=== PATIENT | male | born 1975 | race Caucasian/White ===

== ENCOUNTER → 2017-03-11 | Outpatient (CLI) | payer SELFPAY ==
--- NOTE | 2017-03-11 09:53 | CT ---
EXAMINATION TYPE: CT heart w calcium score DATE OF EXAM: 03/11/2017 9:31 AM COMPARISON: NONE HISTORY: Screening for cardiovascular disorder. 213.9 CT DLP: 47.1 mGycm Automated exposure control for dose reduction was used. CT CALCIUM SCORING Coronary calcium is a marker for plaque (fatty deposits) in a blood vessel or atherosclerosis (harden ing of the arteries). The presence and amount of calcium detected in a coronary artery by the CT sca n, indicates the presence and amount of atherosclerotic plaque. These calcium deposits appear years before the development of heart disease symptoms such as chest pain and shortness of breath. A calcium score is computed for each of the coronary arteries based upon the volume and density of th e calcium deposits. This can be referred to as your calcified plaque burden. It does not correspond directly to the percentage of narrowing in the artery but does correlate with the severity of the un derlying coronary atherosclerosis. PROCEDURE TECHNIQUE - Prospective Gating was used. Slice thickness: 3mm. Density threshold (HU): 130, Pixel threshold: 3, Algorithm: discrete. RESULTS Region: LM Calcium Score ([place]at[place]): 0 Volume (mm3): 0 Mass (g): 0 Region: RCA Calcium Score ([place]): 0 Volume (mm3): 0 Mass (g): 0 Region: LAD Calcium Score ([place]): 0 Volume (mm3): 0 Mass (g): 0 Region: CX Calcium Score ([place]): 0 Volume (mm3): 0 Mass (g): 0 Region: PDA Calcium Score ([place]): NA Volume (mm3): NA Mass (g): NA Region: Other1 Calcium Score ([place]): NA Volume (mm3): NA Mass (g): NA Region: Other2 Calcium Score ([place]): NA Volume (mm3): NA Mass (g): NA Region: Other 3 Calcium Score ([place]): NA Volume (mm3): NA Mass (g): NA Total: Calcium Score ([place]): 0 Volume (mm3): 0 Mass (g): 0 TOTAL CALCIUM SCORE: 0 OTHER: Calcified hilar lymph nodes suggesting remote granulomatous disease. Granuloma within the spl een. IMPRESSION: Calcium Score: 0 Implication: No identifiable plaque. Risk of Coronary Artery Disease: Very low generally less than 5%
== END | disposition home or self-care (01) ==
LOC: RADCTMAIN 09:04
PROVIDERS: ATTEND Radiology Diagnostic Radiology
DX: Z53.9 Procedure and treatment not carried out, unspecified reason (principal)

== ENCOUNTER → 2021-06-18 | Outpatient (CLI) | payer OTHER ==
--- NOTE | 2021-06-18 12:50 | CT ---
EXAMINATION TYPE: CT brain wo con DATE OF EXAM: 06/18/2021 COMPARISON: 05/12/2013 HISTORY: headache, nausea, vomiting post head injury CT DLP: 1017.9 mGycm. Automated Exposure Control for Dose Reduction was Utilized. TECHNIQUE: CT scan of the head is performed without contrast. FINDINGS: There is no acute intracranial hemorrhage, mass effect, or midline shift identified. The ventricles and sulci are within normal limits in size. The globes are intact and the visualized sin uses are clear. IMPRESSION: No acute intracranial hemorrhage, mass effect, or midline shift is seen. If symptoms per sist consider MRI.
== END | disposition home or self-care (01) ==
LOC: RADCTMAIN 11:49
PROVIDERS: ATTEND Family Medicine
DX: S09.90XA Unspecified injury of head, initial encounter (principal); R51.9 Headache, unspecified
CPT/HCPCS: 70450

== ENCOUNTER → 2023-03-11 | Outpatient (CLI) | payer OTHER ==
[2023-03-12 01:14] LABS: HCT 44.9 % (39.6-50.0); HGB 14.7 g/dL (13.0-17.0); MCH 29.6 pg (27.0-32.0); MCHC 32.7 g/dL (32.0-37.0); MCV 90.5 fL (80.0-97.0); Mean Platelet Volume 10.5 fL (9.5-12.2); NRBC Per 100 WBC 0 /100 WBCS (0.0-0.0); Platelet Count 308 X 10*3/uL (140-440); RBC 4.96 X 10*6/uL (4.40-5.60); RDW 13.2 % (11.5-14.5); WBC 4.54 X 10*3/uL (4.50-10.00)
[2023-03-12 04:13] LABS: ALT 36 U/L (10-49); AST 24 U/L (14-35); African American GFR (CKD) 105.3 (60.0-200.0); Albumin 4.5 g/dL (3.8-4.9); Albumin/Globulin Ratio 2.05 (1.60-3.17); Alkaline Phosphatase 79 U/L (41-126); BUN/Creat Ratio 13.52 Ratio (12.00-20.00); Blood Urea Nitrogen 13.4 mg/dL (9.0-27.0); Calcium 9.6 mg/dL (8.7-10.3); Carbon Dioxide 25.8 mmol/L (20.0-27.5); Chloride 104 mmol/L (96-109); Chol/HDL Ratio 5.99 Ratio; Globulin 2.2 g/dL (1.6-3.3); Glucose 75 mg/dL (70-110); LDL Cholesterol,Calculated 140.1 mg/dL (0.0-131.0); Non-African American GFR(CKD) 90.9 (60.0-200.0); Potassium 4.4 mmol/L (3.5-5.5); Sodium 142 mmol/L (135-145); Total Protein 6.8 g/dL (6.2-8.2)
== END | disposition home or self-care (01) ==
LOC: LABWHC1 15:49
PROVIDERS: ATTEND Family Medicine
DX: Z00.00 Encounter for general adult medical examination without abnormal findings (principal); E78.5 Hyperlipidemia, unspecified; E56.9 Vitamin deficiency, unspecified
CPT/HCPCS: 36415; 80053; 80061; 82306; 83036; 84153; 84439; 84443; 85027

== ENCOUNTER 2023-04-15 10:30 | Day surgery (SDC) | payer OTHER ==
[~2023-04-15 10:30] MED LIST: LACTATED RINGERS 1,000 ML IV SCH; LIDOCAINE 1% (10MG/ML) FOR IV START INTRADERMA PRN
[2023-04-15 11:43] VITALS: TEMP 97.8
[2023-04-15] MEDS ORDERED: LIDOCAINE 2% INJ 20 MG/ML (2 ML VIAL) ONE (12:34)
[2023-04-15] MEDS ORDERED: PROPOFOL 10 MG/ML 20 ML VIAL IV ONE (12:34)
--- NOTE | 2023-04-15 12:53 | P.PCN ---
Date of Procedure: 04/15/23 Procedure(s) Performed: BRIEF HISTORY: Patient is a 48-year-old pleasant white female scheduled for an elective colonoscopy as a part of screening for colon cancer. PROCEDURE PERFORMED: Colonoscopy with biopsy . PREOPERATIVE DIAGNOSIS: Screening for colon cancer. IV sedation per Anesthesia. PROCEDURE: After informed consent was obtained, the patient, was brought into the endoscopy unit. IV sedation was administered by Anesthesia under continuous monitoring. Digital rectal examination was normal. Initially the Olympus CF-160 flexible video colonoscope was then inserted in the rectum, gradually advanced into the cecum without any difficulty. Careful examination was performed as the scope was gradually being withdrawn. Ileocecal valve and the appendiceal orifice were visualized and appeared normal. Prep was fair.. Mucosa of the cecum, ascending colon appeared normal. In the transverse colon there was a 3 mm sessile polyp removed by cold biopsy. In the descending colon there was another 4 mm sessile polyp removed by cold biopsy. Rest of the, transverse colon, descending colon, sigmoid colon, and rectum appeared normal. Scattered sigmoid diverticulosis. Retroflexion was performed in the rectum and small internal hemorrhoids were seen. The patient tolerated the procedure well. IMPRESSION: 3 mm sessile transverse colon polyp status post cold biopsy 4 mm desscending colon polyp status post cold biopsy Scattered sigmoid diverticulosis Small internal hemorrhoids. RECOMMENDATIONS: Findings of this examination were discussed with the patient as well as his family. He was advised to follow with the biopsy results. If the biopsy result adenoma he can have a repeat colonoscopy in 5 years..
[2023-04-15 13:12] VITALS: BP 114/66; PULSE 73; RESP 16
== END 2023-04-15 13:45 | disposition home or self-care (01) ==
LOC: ORWHC2ENDO 10:30
PROVIDERS: ATTEND Internal Medicine Gastroenterology
DX: Z12.11 Encounter for screening for malignant neoplasm of colon (principal); D12.3 Benign neoplasm of transverse colon; K57.30 Diverticulosis of large intestine without perforation or abscess without bleeding; K64.8 Other hemorrhoids; K21.9 Gastro-esophageal reflux disease without esophagitis; G43.909 Migraine, unspecified, not intractable, without status migrainosus; Z79.899 Other long term (current) drug therapy
CPT/HCPCS: 88305; 45380; J2704; J2001

== ENCOUNTER → 2024-02-22 | Outpatient (CLI) | payer MEDICAID ==
--- NOTE | 2024-02-22 22:33 | MR ---
EXAMINATION TYPE: MR knee LT wo con DATE OF EXAM: 02/22/2024 COMPARISON: NONE HISTORY: Left knee pain and swelling x4 months, Hx Left ACL and meniscus reconstruction/repair 2012 TECHNIQUE: Multiplanar, multisequence images of the knee is performed without IV contrast. FINDINGS: MEDIAL MENISCUS: Truncated appearance to central body and posterior horn of medial meniscus with abno rmal signal in the remnant horn extending to inferior articular surface sagittal image 29. LATERAL MENISCUS: Truncated appearance to posterior horn with abnormal signal throughout the central body and prominent horn extending to inferior articular surface coronal image 21. CRUCIATE LIGAMENTS: The posterior cruciate ligament is intact and unremarkable. Anterior cruciate lig ament is not seen and presumed torn. Susceptibility artifact prior anterior cruciate ligament surgica l repair is noted COLLATERAL LIGAMENTS: The medial collateral ligament and lateral collateral ligament complex are inta ct. Increased signal and thickening of the lateral collateral ligament. EXTENSOR MECHANISM: Visualized quadriceps and patellar tendons are intact. EFFUSION: No significant suprapatellar joint effusion. POPLITEAL CYST: No popliteal/brand cyst. TRICOMPARTMENT SPACES: Moderate to severe joint space loss and spurring. CARTILAGE: Significant full-thickness cartilaginous loss lateral tibiofemoral compartment. Additional cartilaginous loss medial tibiofemoral compartment. Some contemplation patella with fissuring along posterior patellar pole sagittal image 19. BONE MARROW SIGNAL: Subchondral cystic change posterior lateral aspect of the tibial plateau. OTHER: No additional significant abnormality is appreciated. IMPRESSION: 1. Moderate to advanced tricompartment degenerative changes are present as detailed above. 2. Complete tear of the surgically repaired anterior cruciate ligament. 3. Likely postsurgical change with recurrent full-thickness tear of the medial meniscus involving the body and posterior horn. 4. Likely postsurgical change with recurrent full-thickness tear of the central body and posterior ho rn of the lateral meniscus.
== END | disposition home or self-care (01) ==
LOC: RADMRIMAIN 18:24
PROVIDERS: ATTEND Orthopaedic Surgery
DX: M17.12 Unilateral primary osteoarthritis, left knee (principal); M23.8X2 Other internal derangements of left knee; M23.612 Other spontaneous disruption of anterior cruciate ligament of left knee; M23.322 Other meniscus derangements, posterior horn of medial meniscus, left knee; M23.352 Other meniscus derangements, posterior horn of lateral meniscus, left knee; M23.362 Other meniscus derangements, other lateral meniscus, left knee; M23.332 Other meniscus derangements, other medial meniscus, left knee; Z98.890 Other specified postprocedural states

== ENCOUNTER → 2024-03-08 | Outpatient (CLI) | payer MEDICAID, OTHER ==
[2024-03-08 11:38] LABS: HCT 46.9 % (39.6-50.0); MCHC 34.1 g/dL (32.0-37.0); MCV 87.8 FL (80.0-97.0); Mean Platelet Volume 10.1 FL (9.5-12.2); NRBC Per 100 WBC 0 X 10*3/uL (0.00-0.01); Platelet Count 295 X 10*3/uL (140-440); RBC 5.34 X 10*6/uL (4.40-5.60); WBC 3.98 X 10*3/uL (4.50-10.00)
[2024-03-08 16:35] LABS: ALT 54 U/L (10-49); AST 65 U/L (14-35); Albumin 4.6 g/dL (3.8-4.9); Albumin/Globulin Ratio 1.92 Ratio (1.60-3.17); Alkaline Phosphatase 79 U/L (41-126); Blood Urea Nitrogen 16.5 mg/dL (9.0-27.0); Carbon Dioxide 25.2 mmol/L (21.6-31.8); Chloride 102 mmol/L (96-109); Chol/HDL Ratio 5.21 Ratio; Globulin 2.4 g/dL (1.6-3.3); Glucose 113 mg/dL (70-110); LDL Cholesterol,Calculated 133.2 mg/dL (0.0-131.0); Prostate Specific Antigen 0.63 ng/mL (0.000-2.500); Sodium 139 mmol/L (135-145); T4, Free (Free Thyroxine) 1.13 ng/dL (0.80-1.80); Total Bilirubin 0.5 mg/dL (0.3-1.2)
== END | disposition home or self-care (01) ==
LOC: LABWHC1 08:03
PROVIDERS: ATTEND Family Medicine
DX: Z00.00 Encounter for general adult medical examination without abnormal findings (principal); E78.5 Hyperlipidemia, unspecified; E56.9 Vitamin deficiency, unspecified; L70.0 Acne vulgaris; Z79.899 Other long term (current) drug therapy
CPT/HCPCS: 36415; 80053; 80061; 82306; 83036; 84153; 84439; 84443; 85027

== ENCOUNTER → 2024-11-04 | Outpatient (CLI) | payer MEDICAID ==
[2024-11-04 16:24] LABS: ALT 56 U/L (10-49); AST 36 U/L (14-35); Albumin 4.6 g/dL (3.8-4.9); Albumin/Globulin Ratio 1.92 Ratio (1.60-3.17); Alkaline Phosphatase 86 U/L (41-126); Calcium 9.3 mg/dL (8.7-10.3); Carbon Dioxide 26.4 mmol/L (21.6-31.8); Chloride 103 mmol/L (96-109); Chol/HDL Ratio 3.94 Ratio; Globulin 2.4 g/dL (1.6-3.3); Glucose 103 mg/dL (70-110); LDL Cholesterol,Calculated 80.2 mg/dL (0.0-131.0); Potassium 4.6 mmol/L (3.5-5.5); Sodium 140 mmol/L (135-145); Total Bilirubin 0.4 mg/dL (0.3-1.2)
== END | disposition home or self-care (01) ==
LOC: LABWHC1 10:21
PROVIDERS: ATTEND Family Medicine
DX: J45.909 Unspecified asthma, uncomplicated (principal)
CPT/HCPCS: 36415; 80053; 80061

== ENCOUNTER 2025-01-25 20:08 | Observation (INO) | payer MEDICAID ==
[2025-01-25 20:47] LABS: Basophils % (A) 0 %; Eosinophils # (A) 0.2 k/uL (0-0.7); Eosinophils % (A) 1 %; HCT 44.1 % (39.0-53.0); HGB 14.5 gm/dL (13.0-17.5); Lymphocytes # (A) 0.8 k/uL (1.0-4.8); Lymphocytes % (A) 5 %; MCH 29.6 pg (25.0-35.0); MCHC 32.8 g/dL (31.0-37.0); Mean Platelet Volume 7.7; Monocytes # (A) 0.3 k/uL (0-1.0); Monocytes % (A) 2 %; Neutrophils # (A) 13.9 k/uL (1.3-7.7); Neutrophils % (A) 90 %; Platelet Count 268 k/uL (150-450); RDW 12.9 % (11.5-15.5); WBC 15.4 k/uL (3.8-10.6)
--- NOTE | 2025-01-25 20:49 | ED ---
General Adult HPI - General Source: patient Mode of arrival: ambulatory Limitations: no limitations <Giorgio Doran - Last Filed: 01/25/25 20:55> <Kindra Gomez - Last Filed: 01/30/25 22:26> - General Chief complaint: Shortness of Breath Stated complaint: sob Time Seen by Provider: 01/25/25 20:45 - History of Present Illness Initial comments: Macro dictation was produced using [employer] dictation software. please excuse any grammatical, word or spelling errors. Chief Complaint: 49-year-old male presents to the ER for dyspnea History of Present Illness: Patient is a 49-year-old male presents the emergency department for dyspnea. Patient with history of asthma. He is one of our internal medicine physicians. States he is short of breath the last 2 days. Recently traveled. Concerned he might have PE. He was checking his pulse ox at home and found to be as low as the high 70s with exertion. Patient has some mild chest pain. Denies that is pleuritic. Patient does have some mild coughing and some chills. No obvious sick contacts. The ROS documented in this emergency department record has been reviewed and confirmed by me. Those systems with pertinent positive or negative responses have been documented in the HPI. All other systems are other negative and/or noncontributory. (Giorgio Doran) - Related Data Home Medications Medication Instructions Recorded Confirmed Escitalopram Oxalate [Lexapro] 10 mg PO DAILY 08/29/15 01/26/25 Montelukast [Singulair] 10 mg PO HS 08/29/15 01/26/25 Famotidine [Pepcid] 20 mg PO BID PRN 04/14/23 01/26/25 Glucosamine/Chondr Hughes A Sod [Osteo 2 tab PO HS 04/14/23 01/26/25 Bi-Flex Caplet] Albuterol Inhaler [Ventolin Hfa 2 puff INHALATION RT-Q6H PRN 01/26/25 01/26/25 Inhaler] Cyanocobalamin (Vitamin B-12) 1,000 mcg PO DAILY 01/26/25 01/26/25 [Vitamin B-12] Fexofenadine HCl [Ekta Allergy] 180 mg PO DAILY 01/26/25 01/26/25 Fluticasone Propionate 44 Mcg 2 puff INHALATION RT-BID 01/26/25 01/26/25 [Flovent 44 Mcg Inhaler] Multivit-Mins/Iron/Folic/Lycop 1 tab PO DAILY 01/26/25 01/26/25 [Centrum Men's Tablet] Riboflavin (Vitamin B2) [Vitamin 400 mg PO DAILY 01/26/25 01/26/25 B-2] Rizatriptan Benzoate [Rizatriptan 10 mg PO TID PRN MDD 30mg 01/26/25 01/26/25 Benzoate ODT] Rosuvastatin Calcium [Crestor] 5 mg PO HS 01/26/25 01/26/25 Previous Rx's Medication Instructions Recorded Azithromycin [Zithromax Z Pack] 1 tab PO DIRECTED #6 tab 01/26/25 methylPREDNISolone Dose Pack 4 mg PO DIRECTED #21 tab 01/26/25 [Medrol Dose Pack] Allergies Allergy/AdvReac Type Severity Reaction Status Date / Time No Known Allergies Allergy Verified 01/26/25 09:54 Review of Systems ROS Other: All systems not noted in ROS Statement are negative. <Giorgio Doran - Last Filed: 01/25/25 20:55> ROS Other: All systems not noted in ROS Statement are negative. <Kindra Gomez - Last Filed: 01/30/25 22:26> ROS Statement: Those systems with pertinent positive or pertinent negative responses have been documented in the HPI. Past Medical History Additional Past Medical History / Comment(s): SEASONAL ALLERGIES. QUESTIONABLE ASTHMA. ACNE TX. MIGRAINES. TIB/FIB FX. History of Any Multi-Drug Resistant Organisms: None Reported Past Surgical History: Orthopedic Surgery Additional Past Surgical History / Comment(s): LEFT ACL REPPAIR. Past Anesthesia/Blood Transfusion Reactions: Previous Problems w/ Anesthesia Additional Past Anesthesia/Blood Transfusion Reaction / Comment(s): POST ACL SURGERY HAD SEVERE MIGRAINE. Past Psychological History: Depression Smoking Status: Never smoker Past Alcohol Use History: Rare Past Drug Use History: None Reported - Past Family History Mother Family Medical History: No Reported History <Giorgio Doran - Last Filed: 01/25/25 20:55> General Exam Limitations: no limitations <Giorgio Doran - Last Filed: 01/25/25 20:55> - General Exam Comments Initial Comments: PHYSICAL EXAM: General Impression: Alert and oriented x3, acute distress secondary to dyspnea HEENT: Normocephalic atraumatic, extra-ocular movements intact, pupils equal and reactive to light bilaterally, mucous membranes moist. Cardiovascular: Heart regular rate and rhythm Chest: Able to complete full sentences, no retractions, no tachypnea clear to auscultation bilaterally Abdomen: abdomen soft, non-tender, non-distended, no organomegaly Musculoskeletal: Pulses present and equal in all extremities, no peripheral edema Motor: no focal deficits noted Neurological: CN II-XII grossly intact, no focal motor or sensory deficits noted Skin: Intact with no visualized rashes Psych: Normal affect and mood (Giorgio Doran) Course <Giorgio Doran - Last Filed: 01/25/25 20:55> Vital Signs 01/25/25 01/25/25 01/25/25 20:29 20:47 20:52 Temperature 98.9 F Pulse Rate 113 H 102 H Respiratory 20 20 20 Rate Blood Pressure 120/83 116/77 O2 Sat by Pulse 93 L 95 Oximetry 01/25/25 01/26/25 01/26/25 22:45 00:00 01:21 Temperature 99.3 F Pulse Rate 93 90 94 Respiratory 18 19 18 Rate Blood Pressure 111/75 111/77 O2 Sat by Pulse 97 95 Oximetry 01/26/25 01/26/25 01:29 02:03 Temperature 99.0 F Pulse Rate 88 80 Respiratory 18 19 Rate Blood Pressure 118/81 O2 Sat by Pulse 99 Oximetry - Reevaluation(s) Reevaluation #1: 01/25/25 20:47 Ambulatory pulse ox is 88% after walking approximately 80 yards. Heart rate increased to 128 (Giorgio Doran) EKG Findings - EKG Comments: EKG Findings:: My EKG interpretation: Ventricular rate 109, sinus tachycardia,. 180, QRS 112, QTc 375. No OR prolongation, no QTC prolongation, no ST or T-wave changes noted. Overall, this EKG is unremarkable <Giorgio Doran - Last Filed: 01/25/25 20:55> Medical Decision Making - Lab Data Result diagrams: 01/25/25 20:39 <Giorgio Doran - Last Filed: 01/25/25 20:55> - Lab Data Result diagrams: 01/25/25 20:39 01/25/25 20:39 <Kindra Gomez - Last Filed: 01/30/25 22:26> - Medical Decision Making Was pt. sent in by a medical professional or institution (, PA, [facility], urgent care, hospital, or prison...) When possible be specific @ -No Did you speak to anyone other than the patient for history (EMS, parent, family, police, friend...)? What history was obtained from this source @ -No Did you review nursing and triage notes (agree or disagree)? Why? @ -I reviewed and agree with nursing and triage notes Were old charts reviewed (outside hosp., previous admission, EMS record, old EKG, old radiological studies, urgent care reports/EKG's, prison records)? Report findings @ -No old charts were reviewed Differential Diagnosis (chest pain, altered mental status, abdominal pain women, abdominal pain men, vaginal bleeding, musculoskeletal, weakness, fever, dyspnea, syncope, headache, dizziness, GI bleed, back pain, seizure, CVA, palpatations, mental health)? @ -Differential Dyspnea: Coronary syndrome, arrhythmia, tamponade, asthma, COPD, pulmonary embolism, pn eumonia, pneumothorax, pulmonary effusion, anaphylaxis, diabetic ketoacidosis, flailed chest, pulmonary contusion, diaphragmatic rupture, anemia, neuromuscular, this is not meant to be an all-inclusive list. EKG interpreted by me (3pts min.). @ -See above X-rays interpreted by me (1pt min.). @ -Pending CT interpreted by me (1pt min.). @ -None done U/S interpreted by me (1pt. min.). @ -None done What testing was considered but not performed or refused? (CT, X-rays, U/S, labs)? Why? @ -None What meds were considered but not given or refused? Why? @ -None Was smoking cessation discussed for >3mins.? @ -No Were there social determinants of health that impacted care today? How? (Homelessness, low income, unemployed, alcoholism, drug addiction, transportation, low edu. Level, literacy, decrease access to med. care, [facility], rehab)? @ -No Was there de-escalation of care discussed even if they declined (Discuss DNR or withdrawal of care, Hospice)? DNR status @ -No What co-morbidities impacted this encounter? (DM, HTN, Smoking, COPD, CAD, Cancer, CVA, ARF, Chemo, Hep., AIDS, mental health diagnosis, sleep apnea, morbid obesity)? @ -Asthma Was patient admitted / discharged? Hospital course, mention meds given and route, prescriptions, significant lab abnormalities, going to OR and other pertinent info. @ -49-year-old male presents emergency department for dyspnea. He had recent travel however he has been having coughing. Patient has a history of asthma. Slight constitutional symptoms. Patient was hypoxic at home. Is one of our internal medicine doctors. Ambulatory pulse ox was 88 after walking approximately 80 yards. Concomitantly his heart rate increased to 128. He is clear lung sounds. Patient care signed out to Dr. Gomez at 9:00 PM (Giorgio Doran) X-rays interpreted by me (1pt min.). @ -Yes and demonstrates no acute process CT interpreted by me (1pt min.). @ -Yes and demonstrates no central PE. Contrast bolus is inadequate in the peripheral segments Was patient admitted / discharged? Hospital course, mention meds given and route, prescriptions, significant lab abnormalities, going to OR and other pertinent info. @ -I assumed care of the patient at 9 PM. I did discuss results of the laboratory testing and chest x-ray with the patient. He does have a negative D- dimer however due to tachycardia, hypoxia with exertion I did recommend proceeding with the CT anyways. Patient was agreeable to this. CT does not demonstrate a central PE however the contrast is limited in the periphery. Patient is now on 2 L of oxygen. I did recommend treatment for possible asthma exacerbation. Patient was agreeable. I spoke with Dr. Vasques who will admit the patient. I will trend his troponins. Patient was agreeable to the plan he was admitted in stable condition with pulm and cardiology on consult Undiagnosed new problem with uncertain prognosis? @ -Yes Drug Therapy requiring intensive monitoring for toxicity (Heparin, Nitro, Insulin, Cardizem)? @ -No Were any procedures done? @ -No Diagnosis/symptom? @ -Acute exertional dyspnea, tachycardia, hypoxia with exertion, possible asthma exacerbation Acute, or Chronic, or Acute on Chronic? @ -Acute Uncomplicated (without systemic symptoms) or Complicated (systemic symptoms)? @ -Complicated Side effects of treatment? @ -No Exacerbation, Progression, or Severe Exacerbation? @ -No Poses a threat to life or bodily function? How? (Chest pain, [place], [place], pneumonia, PE, COPD, DKA, ARF, appy, cholecystitis, CVA, Diverticulitis, Homicidal, Suicidal, threat to staff... and all critical care pts) @ -Yes this patient does have hypoxia with exertion requiring oxygen supplementation (Kindra Gomez) - Lab Data Lab Results 01/25/25 01/25/25 01/25/25 Range/Units 20:38 20:39 20:39 WBC 15.4 H (3.8-10.6) k/uL RBC 4.90 (4.30-5.90) m/uL Hgb 14.5 (13.0-17.5) gm/dL Hct 44.1 (39.0-53.0) % MCV 90.0 (80.0-100.0) fL MCH 29.6 (25.0-35.0) pg MCHC 32.8 (31.0-37.0) g/dL RDW 12.9 (11.5-15.5) % Plt Count 268 (150-450) k/uL MPV 7.7 Neutrophils % 90 % Lymphocytes % 5 % Monocytes % 2 % Eosinophils % 1 % Basophils % 0 % Neutrophils # 13.9 H (1.3-7.7) k/uL Lymphocytes # 0.8 L (1.0-4.8) k/uL Monocytes # 0.3 (0-1.0) k/uL Eosinophils # 0.2 (0-0.7) k/uL Basophils # 0.0 (0-0.2) k/uL PT 11.2 (10.0-12.5) sec INR 1.0 (<1.2) APTT 23.7 (22.0-30.0) sec D-Dimer 0.30 (<0.60) mg/L FEU Sodium (137-145) mmol/L Potassium (3.5-5.1) mmol/L Chloride (98-107) mmol/L Carbon Dioxide (22-30) mmol/L Anion Gap mmol/L BUN (9-20) mg/dL Creatinine (0.66-1.25) mg/dL Est GFR (CKD-EPI)AfAm (>60 ml/min/1.73 sqM) Est GFR (CKD-EPI)NonAf (>60 ml/min/1.73 sqM) Glucose (74-99) mg/dL Calcium (8.4-10.2) mg/dL Total Bilirubin (0.2-1.3) mg/dL AST (17-59) U/L ALT (4-49) U/L Alkaline Phosphatase (38-126) U/L Troponin I (0.000-0.034) ng/mL Total Protein (6.3-8.2) g/dL Albumin (3.5-5.0) g/dL Influenza Type A (PCR) Not Detected (Not Detectd) Influenza Type B (PCR) Not Detected (Not Detectd) RSV (PCR) Not Detected (Not Detectd) SARS-CoV-2 (PCR) Not Detected (Not Detectd) 01/25/25 01/25/25 Range/Units 20:39 20:39 WBC (3.8-10.6) k/uL RBC (4.30-5.90) m/uL Hgb (13.0-17.5) gm/dL Hct (39.0-53.0) % MCV (80.0-100.0) fL MCH (25.0-35.0) pg MCHC (31.0-37.0) g/dL RDW (11.5-15.5) % Plt Count (150-450) k/uL MPV Neutrophils % % Lymphocytes % % Monocytes % % Eosinophils % % Basophils % % Neutrophils # (1.3-7.7) k/uL Lymphocytes # (1.0-4.8) k/uL Monocytes # (0-1.0) k/uL Eosinophils # (0-0.7) k/uL Basophils # (0-0.2) k/uL PT (10.0-12.5) sec INR (<1.2) APTT (22.0-30.0) sec D-Dimer (<0.60) mg/L FEU Sodium 136 L (137-145) mmol/L Potassium 4.2 (3.5-5.1) mmol/L Chloride 98 (98-107) mmol/L Carbon Dioxide 26 (22-30) mmol/L Anion Gap 12 mmol/L BUN 13 (9-20) mg/dL Creatinine 0.96 (0.66-1.25) mg/dL Est GFR (CKD-EPI)AfAm >90 (>60 ml/min/1.73 sqM) Est GFR (CKD-EPI)NonAf >90 (>60 ml/min/1.73 sqM) Glucose 109 H (74-99) mg/dL Calcium 9.3 (8.4-10.2) mg/dL Total Bilirubin 1.0 (0.2-1.3) mg/dL AST 50 (17-59) U/L ALT 73 H (4-49) U/L Alkaline Phosphatase 74 (38-126) U/L Troponin I <0.012 (0.000-0.034) ng/mL Total Protein 7.2 (6.3-8.2) g/dL Albumin 4.6 (3.5-5.0) g/dL Influenza Type A (PCR) (Not Detectd) Influenza Type B (PCR) (Not Detectd) RSV (PCR) (Not Detectd) SARS-CoV-2 (PCR) (Not Detectd) Disposition <Giorgio Doran - Last Filed: 01/25/25 20:55> Is patient prescribed a controlled substance at d/c from ED?: No Time of Disposition: 00:57 Decision to Admit Reason: Admit from EC Decision Date: 01/26/25 Decision Time: 00:57 <Kindra Gomez - Last Filed: 01/30/25 22:26> Clinical Impression: Acute respiratory insufficiency, Asthma exacerbation Disposition: ADMITTED IP TO THIS [facility] Condition: Stable
[2025-01-25 20:57] LABS: ALT 73 U/L (4-49); AST 50 U/L (17-59); African American GFR (CKD) >90 (>60 ml/min/1.73 sqM); Albumin 4.6 g/dL (3.5-5.0); Alkaline Phosphatase 74 U/L (38-126); Anion Gap 12 mmol/L; Blood Urea Nitrogen 13 mg/dL (9-20); Calcium 9.3 mg/dL (8.4-10.2); Carbon Dioxide 26 mmol/L (22-30); Chloride 98 mmol/L (98-107); Glucose 109 mg/dL (74-99); Non-African American GFR(CKD) >90 (>60 ml/min/1.73 sqM); Potassium 4.2 mmol/L (3.5-5.1); Sodium 136 mmol/L (137-145); Total Protein 7.2 g/dL (6.3-8.2)
[2025-01-25 21:01] LABS: Partial Thromboplastin Time 23.7 sec (22.0-30.0); Prothrombin Time 11.2 sec (10.0-12.5)
--- NOTE | 2025-01-25 21:07 | XR ---
EXAMINATION TYPE: XR chest 2V DATE OF EXAM: 01/25/2025 9:01 PM COMPARISON: None TECHNIQUE: XR chest 2V Frontal and lateral views of the chest. CLINICAL INDICATION:Male, 49 years old with history of difficulty breathing; FINDINGS: Lungs/Pleura: There is no evidence of pleural effusion, focal consolidation, or pneumothorax. Pulmonary vascularity: Unremarkable. Heart/mediastinum: Cardiomediastinal silhouette is unremarkable. Musculoskeletal: No acute osseous pathology. IMPRESSION: No acute cardiopulmonary disease/process. [facility], , 01/25/2025 9:05 PM
[2025-01-25 21:22] LABS: Influenza A Not Detected (Not Detectd); Influenza B Not Detected (Not Detectd); RSV Not Detected (Not Detectd)
--- NOTE | 2025-01-25 22:40 | CT ---
EXAMINATION TYPE: CT chest angio for PE CT DLP: 580.2 mGycm, Automated exposure control for dose reduction was used. DATE OF EXAM: 01/25/2025 10:32 PM COMPARISON: Chest radiograph from same day. CLINICAL INDICATION:Male, 49 years old with history of sob, tachy; Pt arrives in today for sudden onset for shortness of breath after recent travel. Pt also complained of mild chest discomfort. TECHNIQUE/CONTRAST: CTA scan of the thorax is performed with IV Contrast, patient injected with 100 mL of Isovue 370, pul monary embolism protocol. MIP images are created and reviewed. FINDINGS: Pulmonary Artery: There is no evidence for a central filling defect within the pulmonary vasculature to suggest acute pulmonary embolism. Limited evaluation of the segmental and subsegmental branches se condary to bolus timing. The pulmonary artery is of normal size. Lungs/Pleura: No evidence of focal consolidation, pleural effusion or pneumothorax. Minimal bilateral lower lobe dependent subsegmental atelectasis. Airway: Large airways are patent. Heart: Size within normal limits.No pericardial effusion No significant coronary artery calcification s. Vasculature: No evidence of aortic aneurysm. Mediastinum: No gross evidence of adenopathy. Musculoskeletal: No acute osseous abnormalities Soft Tissues: Unremarkable. Lower neck: No significant findings. Upper Abdomen: Diffuse low-attenuation to the liver parenchyma. Couple of calcified punctate granulom as within the spleen. IMPRESSION: 1. No evidence of central pulmonary embolism. Limited evaluation of the segmental and subsegmental br anches. 2. Hepatic steatosis. [facility], , 01/25/2025 10:38 PM
[2025-01-26] MEDS ORDERED: NALOXONE 0.4 MG/ML 1 ML VIAL IV PRN (00:57)
[2025-01-26] MEDS: methylPREDNISolone SOD SUCCI 125 MG/2 ML VIAL IV STA (01:19)
[2025-01-26] MEDS: IPRATROPIUM-ALBUTEROL 3 ML NEB INHALATION STA (01:21)
[2025-01-26] MEDS ORDERED: IPRATROPIUM-ALBUTEROL 3 ML NEB INHALATION PRN (02:58)
[2025-01-26] MEDS ORDERED: IPRATROPIUM-ALBUTEROL 3 ML NEB INHALATION SCH (04:00)
--- NOTE | 2025-01-26 06:41 | P.CNPUL ---
History of Present Illness Consult date: 01/26/25 Requesting physician: Kindra Gomez Reason for consult: asthma Chief complaint: Shortness of breath History of present illness: Patient is a 41-year-old male with past medical history significant for adult onset asthma, VERONICA with home CPAP, migraines. He is a physician. Chief complaint of shortness of breath over the last 2 days. Spastic nonproductive cough. Associated left lateral chest pain. Pulse ox was reading as low as 70% on exertion. Tried using his albuterol rescue inhaler, without much relief. Decided to come to the emergency department yesterday for evaluation. Workup in the emergency department including a chest CTA which was limited by bolus contrast timing. No central saddle PE. No focal consolidations or evidence of pneumonia. No pleural effusions. No pneumothoraces. CBC: WBC count 15.4, hemoglobin 14.5, platelets 268. CMP: Sodium 136, potassium 4.2, chloride 98, serum bicarb 26, BUN 13, creatinine 0.86, glucose 109. LFTs not elevated. D- dimer 0.3. Troponin less than 0.012 x 2. EKG: Sinus tachycardia, rate 109 bpm, no acute ischemic changes. Patient does have a history of persistent bronchial asthma. Utilizes Flovent inhaler, as well as, as needed albuterol rescue. No recent hospitalizations within the past year for asthma. Normally fairly well- controlled. Viral 4 Plex was negative for influenza, RSV, COVID. Evaluating this patient on the cardiac observation unit. He is resting comfortably bed on 2 L/min nasal cannula. Patient states he had recent plane travel to [place]. He biked 20 miles without any issues or difficulty in breathing. Symptoms started once home, approximately 2 days ago. Developed rather acute onset shortness of breath. Associated spastic nonproductive cough and left sided chest pain. He was initially worried about pulmonary embolism. States he has never had an asthma exacerbation present to severe. Denies any fevers, chills, sputum production, hemoptysis. He is unsure about sick contacts, as he was, on a plane. Chest pain is localized to the left midclavicular area. Persistent. Not particularly worse with movement, coughing or deep breathing. No associated nausea, diaphoresis. Current vital signs: Temperature 98.5 F, heart rate 74 bpm, blood pressure 126/68 mmHg, nontachypneic, SpO2 recorded at 96% on 2 L/min nasal cannula. Review of Systems Constitutional: Reports chronic headaches, Denies chills, Denies fatigue, Denies fever, Denies night sweats, Denies poor appetite, Denies weight gain, Denies weight loss Ears, nose, mouth and throat: Denies nasal congestion, Denies nasal discharge, Denies post-nasal drip, Denies sinus pain, Denies sinus pressure, Denies sore throat Cardiovascular: Reports chest pain, Denies leg edema, Denies lightheadedness, Denies orthopnea, Denies palpitations, Denies paroxysmal nocturnal dyspnea, Denies syncope Respiratory: Reports cough, Reports dyspnea, Denies cough with sputum, Denies hemoptysis, Denies pain on inspiration Gastrointestinal: Denies abdominal pain, Denies diarrhea, Denies nausea, Denies vomiting Genitourinary: Denies dysuria Musculoskeletal: Denies limitation of motion Integumentary: Denies rash Neurological: Denies seizures, Denies syncope Psychiatric: Denies anxiety, Denies depression Past Medical History Additional Past Medical History / Comment(s): SEASONAL ALLERGIES. QUESTIONABLE ASTHMA. ACNE TX. MIGRAINES. TIB/FIB FX. History of Any Multi-Drug Resistant Organisms: None Reported Past Surgical History: Orthopedic Surgery Additional Past Surgical History / Comment(s): LEFT ACL REPPAIR. Past Anesthesia/Blood Transfusion Reactions: Previous Problems w/ Anesthesia Additional Past Anesthesia/Blood Transfusion Reaction / Comment(s): POST ACL SURGERY HAD SEVERE MIGRAINE. Past Psychological History: Depression Smoking Status: Never smoker Past Alcohol Use History: Rare Past Drug Use History: None Reported - Past Family History Mother Family Medical History: No Reported History Medications and Allergies Home Medications Medication Instructions Recorded Confirmed Type Escitalopram Oxalate [Lexapro] 10 mg PO DAILY 08/29/15 01/26/25 History Montelukast [Singulair] 10 mg PO HS 08/29/15 01/26/25 History Famotidine [Pepcid] 20 mg PO BID PRN 04/14/23 01/26/25 History Glucosamine/Chondr Hughes A Sod [Osteo 2 tab PO HS 04/14/23 01/26/25 History Bi-Flex Caplet] Albuterol Inhaler [Ventolin Hfa 2 puff INHALATION RT-Q6H PRN 01/26/25 01/26/25 History Inhaler] Azithromycin [Zithromax Z Pack] 1 tab PO DIRECTED #6 tab 01/26/25 Rx Cyanocobalamin (Vitamin B-12) 1,000 mcg PO DAILY 01/26/25 01/26/25 History [Vitamin B-12] Fexofenadine HCl [Ekta Allergy] 180 mg PO DAILY 01/26/25 01/26/25 History Fluticasone Propionate 44 Mcg 2 puff INHALATION RT-BID 01/26/25 01/26/25 History [Flovent 44 Mcg Inhaler] Multivit-Mins/Iron/Folic/Lycop 1 tab PO DAILY 01/26/25 01/26/25 History [Centrum Men's Tablet] Riboflavin (Vitamin B2) [Vitamin 400 mg PO DAILY 01/26/25 01/26/25 History B-2] Rizatriptan Benzoate [Rizatriptan 10 mg PO TID PRN MDD 30mg 01/26/25 01/26/25 History Benzoate ODT] Rosuvastatin Calcium [Crestor] 5 mg PO HS 01/26/25 01/26/25 History methylPREDNISolone Dose Pack 4 mg PO DIRECTED #21 tab 01/26/25 Rx [Medrol Dose Pack] Allergies Allergy/AdvReac Type Severity Reaction Status Date / Time No Known Allergies Allergy Verified 01/26/25 09:54 Physical Exam Vitals: Vital Signs Temp Pulse Resp BP Pulse Ox 01/26/25 02:03 99.0 F 80 19 118/81 99 01/26/25 01:29 88 18 01/26/25 01:21 94 18 01/26/25 00:00 90 19 111/77 95 01/25/25 22:45 99.3 F 93 18 111/75 97 01/25/25 20:52 20 01/25/25 20:47 102 H 20 116/77 95 01/25/25 20:29 98.9 F 113 H 20 120/83 93 L Intake and Output 01/25/25 01/25/25 01/26/25 14:59 22:59 06:59 Other: Weight 90.718 kg GENERAL EXAM: Alert, 49-year-old well-nourished male, on 2 L/min nasal cannula. Comfortable in no apparent distress. HEAD: Normocephalic and atraumatic EYES: Normal reaction of pupils, equal size. NOSE: Clear with pink turbinates. THROAT: No erythema or exudates. NECK: No masses, no JVD. CHEST: No chest wall deformity. LUNGS: Equal air entry with no crackles, wheeze, rhonchi or dullness. No conversational dyspnea or accessory muscle use while at rest CVS: S1 and S2 normal with no audible murmur, regular rhythm. No extra heart sounds ABDOMEN: No hepatosplenomegaly, active bowel sounds, no guarding or rigidity. SPINE: No scoliosis or deformity SKIN: No rashes CENTRAL NERVOUS SYSTEM: No focal deficits, tone is normal in all 4 extremities. EXTREMITIES: There is no peripheral edema, clubbing, or cyanosis. Peripheral pulses are intact. Results - Laboratory Findings CBC and BMP: 01/25/25 20:39 01/25/25 20:39 PT/INR, D-dimer PT 11.2 sec (10.0-12.5) 01/25/25 20:39 INR 1.0 (<1.2) 01/25/25 20:39 D-Dimer 0.30 mg/L FEU (<0.60) 01/25/25 20:39 Abnormal lab findings: Abnormal Labs 01/25/25 03 20:39 20:39 WBC 15.4 H Neutrophils # 13.9 H Lymphocytes # 0.8 L Sodium 136 L Glucose 109 H ALT 73 H - Diagnostic Findings Chest x-ray: image reviewed CT scan - chest: image reviewed Assessment and Plan Assessment: Suspect exacerbation of persistent bronchial asthma Acute hypoxemic respiratory failure, likely secondary to above Atypical chest pain, ACS felt to be unlikely Acute leukocytosis, no obvious infectious source identified Obstructive sleep apnea with home CPAP History of migraines History of seasonal allergies Plan: Currently on 2 L/min nasal cannula, may wean as tolerated Patient's medications, labs, imaging were reviewed Chest CTA limited by bolus timing, no obvious central pulmonary embolism. No obvious acute parenchymal process. D-dimer low. Viral 4 Plex negative for influenza A/B, RSV, COVID Continue combination of DuoNebs, add budesonide inhalation, and IV Solu-Medrol Case will be reviewed with Dr. Mcdermott Cardiology also asked to come see this patient I have personally seen and examined the patient, performed the documentation and the assessment and plan as written. Number of minutes spent on the visit:20 Joint evaluation was done along with the nurse practitioner. This evaluation was done in 35 minutes. Reviewed the CAT scan of the chest. No evidence of any pulmonary embolism. Clinical presentation is not consistent with PE. The patient is having some symptoms of bronchitis and asthma exacerbation. Oxygenation improved. Pulse ox above 94% room air oxygen. The patient can be discharged on a prednisone burst taper. Continue Flovent. Continue albuterol rescue inhaler. Contact back if there is any worsening. The viral screen is negative. Time with Patient: Greater than 30
[2025-01-26] MEDS: methylPREDNISolone SOD SUCCI 40 MG/ML 1 ML VIAL IV SCH (08:08)
[2025-01-26] MEDS ORDERED: SUMAtriptan succinate 50 MG TAB PO PRN (08:20)
[2025-01-26 08:27] VITALS: BP 121/81; RESP 16; TEMP 98
[2025-01-26] MEDS: IPRATROPIUM-ALBUTEROL 3 ML NEB INHALATION SCH (08:27)
[2025-01-26] MEDS: BUDESONIDE 1 MG/2 ML NEBU INHALATION SCH (08:27)
[2025-01-26 08:33] VITALS: PULSE 100
--- NOTE | 2025-01-26 08:37 | P.HPIM ---
History of Present Illness H&P Date: 01/26/25 This is a 49-year-old male who reports shortness of breath over the last 2 days. Patient had been in [place] and flew home late Thursday evening. While in [place] he biked 20 miles with no issues. Yesterday afternoon patient developed a spastic cough which continued through the evening. Yesterday evening patient's shortness of breath worsened, especially with exertion. His pulse ox reading at home got as low as 75% on exertion. He did use his albuterol rescue inhaler with no relief. CTA of the chest was negative, D-dimer negative and troponins negative x 3. Patient tested negative for the flu, RSV, and COVID. Cardiology and pulmonology have been consulted. Patient seen this morning s itting up in bed resting comfortably with 2 L of oxygen via nasal cannula pulse ox is 96%. Patient does have a history of asthma, which is normally fairly well-controlled, also a history of migraines, and VERONICA with home CPAP. Pulmonology has ordered IV steroids every 8 hours. Cardiology has ordered an echo. Review of Systems Constitutional: Denies chills, Denies fever Cardiovascular: Reports dyspnea on exertion, Denies chest pain Respiratory: Reports cough, Reports dyspnea Gastrointestinal: Denies nausea, Denies vomiting Neurological: Denies headaches, Denies weakness Past Medical History Additional Past Medical History / Comment(s): SEASONAL ALLERGIES. QUESTIONABLE ASTHMA. ACNE TX. MIGRAINES. TIB/FIB FX. History of Any Multi-Drug Resistant Organisms: None Reported Past Surgical History: Orthopedic Surgery Additional Past Surgical History / Comment(s): LEFT ACL REPPAIR. Past Anesthesia/Blood Transfusion Reactions: Previous Problems w/ Anesthesia Additional Past Anesthesia/Blood Transfusion Reaction / Comment(s): POST ACL SURGERY HAD SEVERE MIGRAINE. Past Psychological History: Depression Smoking Status: Never smoker Past Alcohol Use History: Rare Past Drug Use History: None Reported - Past Family History Mother Family Medical History: No Reported History Medications and Allergies Home Medications Medication Instructions Recorded Confirmed Type [id number] 1 tab PO Q4-6H PRN 08/29/15 04/15/23 History [Excedrin] Escitalopram Oxalate [Lexapro] 10 mg PO DAILY 08/29/15 04/15/23 History Fluticasone Nasal Seymour [Flonase 1 spr NASAL BID 08/29/15 04/15/23 History Nasal Seymour] Loratadine [Claritin] 10 mg PO HS 08/29/15 04/15/23 History Montelukast [Singulair] 10 mg PO HS 08/29/15 04/15/23 History Riboflavin (Vitamin B2) [Vitamin 400 mg PO DAILY 08/29/15 04/15/23 History B-2] Jetalert 1 tab PO DAILY PRN 08/31/15 04/15/23 History Rizatriptan Benzoate [Maxalt] 10 mg PO DAILY PRN 08/31/15 04/15/23 History Famotidine [Pepcid] 20 mg PO BID PRN 04/14/23 04/15/23 History Fluticasone Propionate 110 Mcg 1 puff INHALATION HS 04/14/23 04/15/23 History [Flovent 110 Mcg Inhaler] Glucosamine/Chondr Hughes A Sod [Osteo 2 each PO HS 04/14/23 04/15/23 History Bi-Flex Caplet] Isotretilone (Unk) 40 mg PO DIRECTED 04/14/23 04/15/23 History Multivitamins, Thera [Multivitamin 1 tab PO DAILY 04/14/23 04/15/23 History (formulary)] Allergies Allergy/AdvReac Type Severity Reaction Status Date / Time No Known Allergies Allergy Verified 01/25/25 20:34 Physical Exam Vitals: Vital Signs Temp Pulse Pulse Resp BP BP Pulse Ox 01/26/25 02:22 98.5 F 74 15 126/68 96 01/26/25 02:03 99.0 F 80 19 118/81 99 01/26/25 01:29 88 18 01/26/25 01:21 94 18 01/26/25 00:00 90 19 111/77 95 01/25/25 22:45 99.3 F 93 18 111/75 97 01/25/25 20:52 20 01/25/25 20:47 102 H 20 116/77 95 01/25/25 20:29 98.9 F 113 H 20 120/83 93 L Intake and Output 01/25/25 01/26/25 01/26/25 22:59 06:59 14:59 Other: Voiding Method Toilet # Voids 2 Weight 90.718 kg 90.718 kg - Constitutional General appearance: cooperative, no acute distress - EENT Eyes: PERRLA - Neck Neck: no lymphadenopathy, normal ROM, no rigidity - Respiratory Respiratory: bilateral: CTA - Cardiovascular Rhythm: regular Heart sounds: normal: S1, S2 - Gastrointestinal General gastrointestinal: soft, no tenderness - Integumentary Integumentary: normal, normal turgor - Psychiatric Psychiatric: A&O x's 3, appropriate affect, intact judgment & insight Results CBC & Chem 7: 01/25/25 20:39 01/25/25 20:39 Labs: Abnormal Lab Results - Last 24 Hours (Table) 01/25/25 01/25/25 Range/Units 20:39 20:39 WBC 15.4 H (3.8-10.6) k/uL Neutrophils # 13.9 H (1.3-7.7) k/uL Lymphocytes # 0.8 L (1.0-4.8) k/uL Sodium 136 L (137-145) mmol/L Glucose 109 H (74-99) mg/dL ALT 73 H (4-49) U/L Thrombosis Risk Factor Assmnt - Choose All That Apply Each Factor Represents 1 point: Age 41-60 years, Obesity (BMI >25) Thrombosis Risk Factor Assessment Total Risk Factor Score: 2 Thrombosis Risk Factor Assessment Level: Low Risk Assessment and Plan (1) Acute respiratory insufficiency Current Visit: Yes Status: Acute Code(s): R06.89 - OTHER ABNORMALITIES OF BR EATHING SNOMED Code(s): 297154226 (2) Asthma exacerbation Current Visit: Yes Status: Acute Code(s): J45.901 - UNSPECIFIED ASTHMA WITH (ACUTE) EXACERBATION SNOMED Code(s): 595914704 (3) History of seasonal allergies Current Visit: Yes Status: Acute Code(s): Z88.9 - ALLERGY STATUS TO UNSPECIFIED DRUG/MEDS/BIOL SUBST SNOMED Code(s): 255233131 (4) History of migraine Current Visit: Yes Status: Acute Code(s): Z86.69 - PERSONAL HISTORY OF DIS OF THE NERVOUS SYS AND SENSE ORGANS SNOMED Code(s): 045235912 Plan: Appreciate recommendations from cardiology and pulmonary. Check CBC and BMP in the morning. Patient seen and evaluated by nurse practitioner, physician in agreement with plan.
[2025-01-26] MEDS: ESCITALOPRAM 10 MG TAB PO SCH (10:58)
--- NOTE | 2025-01-26 11:28 | P.CRDCN ---
History of Present Illness History of present illness: HISTORY OF PRESENT ILLNESS: This is a 49-year-old male with a past medical history significant for asthma, hyperlipidemia, and prediabetes. 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 We have been asked to see the patient in consultation for exertional dyspnea. Patient examined at the bedside. Patient presented to the hospital yesterday with a chief complaint of shortness of breath. Patient states that he was in [place] and flew back yesterday and he was concerned he may have a pulmonary embolism as he started having shortness of breath around 2:00 in the afternoon. Patient states while in [place] he did a lot of activity including biking 1 day 20 miles without any chest pain or shortness of breath. He does report having a cough that he describes as spastic. He reports having some mild dizziness along with left-sided chest discomfort. He reports having nausea yesterday but no vomiting. He states that he used his rescue inhaler 3 times yesterday. He denies any known cardiac history. He reports having syncope when he was in his 20s and states that was the last time he had an echocardiogram performed. He reports a history of prediabetes and states his most recent A1c was 5.9 and his highest was 6.2. He also reports that he started taking rosuvastatin in [facility] mber 2023. DIAGNOSTICS: - EKG reveals sinus tachycardia with no signs of acute ischemia. - Chest xray negative for acute process - Chest CTA: Negative for pulmonary embolism. Hepatic steatosis. - Laboratory data: WBC 15. 4. Hemoglobin 14.5. Platelet count 268. D-dimer 0.30. Sodium 134. Potassium 4.2. BUN 13. Creatinine 0.96. Troponin negative x 3. - Current home cardiac medications include rosuvastatin 5 mg at night. - No previous echocardiogram, stress test, or cardiac catheterization available in EMR for review REVIEW OF SYSTEMS: At the time of my exam: CONSTITUTIONAL: Denies fever or chills. HEENT: Denies blurred vision, vision changes, or eye pain. Denies hemoptysis CARDIOVASCULAR: Denies chest pain. Denies orthopnea. Denies PND. Denies palpitations RESPIRATORY: Denies shortness of breath. GASTROINTESTINAL: Denies abdominal pain. Denies nausea or vomiting. HEMATOLOGIC: Denies bleeding disorders. GENITOURINARY: Denies any blood in urine. SKIN: Denies pruitis. Denies rash. PHYSICAL EXAM: VITAL SIGNS: Reviewed. GENERAL: Well-developed in no acute distress. HEENT: Head is normocephalic. Pupils are equal, round. Sclerae anicteric. Mucous membranes of the mouth are moist. Neck supple. No JVD or thyromegaly LUNGS: Respirations even and unlabored. Lungs essentially clear to auscultation bilaterally. HEART: Regular rate and rhythm. S1 and S2 heard. 1/6 systolic murmur ABDOMEN: Soft. Nondistended. Nontender. EXTREMITIES: Normal range of motion. No clubbing or cyanosis. Peripheral pulses intact. No lower extremity edema NEUROLOGIC: Awake and alert. Oriented x 3. ASSESSMENT: Shortness of breath Leukocytosis History of asthma Hyperlipidemia Prediabetes PLAN: An acute coronary event has been ruled out Patient's symptoms appear to be pulmonary in etiology Resume statin therapy Obtain 2D echo to assess cardiac structure and function No further inpatient recommendations from a cardiac standpoint Nurse practitioner note has been reviewed by physician. Signing provider agrees with the documented findings, assessment, and plan of care documented by NURSE COMPANION as a scribe. Past Medical History Additional Past Medical History / Comment(s): SEASONAL ALLERGIES. QUESTIONABLE ASTHMA. ACNE TX. MIGRAINES. TIB/FIB FX. History of Any Multi-Drug Resistant Organisms: None Reported Past Surgical History: Orthopedic Surgery Additional Past Surgical History / Comment(s): LEFT ACL REPPAIR. Past Anesthesia/Blood Transfusion Reactions: Previous Problems w/ Anesthesia Additional Past Anesthesia/Blood Transfusion Reaction / Comment(s): POST ACL SURGERY HAD SEVERE MIGRAINE. Past Psychological History: Depression Smoking Status: Never smoker Past Alcohol Use History: Rare Past Drug Use History: None Reported - Past Family History Mother Family Medical History: No Reported History Medications and Allergies Home Medications Medication Instructions Recorded Confirmed Type Escitalopram Oxalate [Lexapro] 10 mg PO DAILY 08/29/15 01/26/25 History Loratadine [Claritin] 10 mg PO HS 08/29/15 01/26/25 History Montelukast [Singulair] 10 mg PO HS 08/29/15 01/26/25 History Famotidine [Pepcid] 20 mg PO BID PRN 04/14/23 01/26/25 History Glucosamine/Chondr Hughes A Sod [Osteo 2 tab PO HS 04/14/23 01/26/25 History Bi-Flex Caplet] Albuterol Inhaler [Ventolin Hfa 2 puff INHALATION RT-Q6H PRN 01/26/25 01/26/25 History Inhaler] Cyanocobalamin (Vitamin B-12) 1,000 mcg PO DAILY 01/26/25 01/26/25 History [Vitamin B-12] Fexofenadine HCl [Ekta Allergy] 180 mg PO DAILY 01/26/25 01/26/25 History Fluticasone Propionate 44 Mcg 2 puff INHALATION RT-BID 01/26/25 01/26/25 History [Flovent 44 Mcg Inhaler] Multivit-Mins/Iron/Folic/Lycop 1 tab PO DAILY 01/26/25 01/26/25 History [Centrum Men's Tablet] Riboflavin (Vitamin B2) [Vitamin 400 mg PO DAILY 01/26/25 01/26/25 History B-2] Rizatriptan Benzoate [Rizatriptan 10 mg PO TID PRN MDD 30mg 01/26/25 01/26/25 History Benzoate ODT] Rosuvastatin Calcium [Crestor] 5 mg PO HS 01/26/25 01/26/25 History Allergies Allergy/AdvReac Type Severity Reaction Status Date / Time No Known Allergies Allergy Verified 01/26/25 09:54 Physical Exam Vitals: Vital Signs Temp Pulse Pulse Resp BP BP Pulse Ox 01/26/25 02:22 98.5 F 74 15 126/68 96 01/26/25 02:03 99.0 F 80 19 118/81 99 01/26/25 01:29 88 18 01/26/25 01:21 94 18 01/26/25 00:00 90 19 111/77 95 01/25/25 22:45 99.3 F 93 18 111/75 97 01/25/25 20:52 20 01/25/25 20:47 102 H 20 116/77 95 01/25/25 20:29 98.9 F 113 H 20 120/83 93 L Intake and Output 01/25/25 01/26/25 01/26/25 22:59 06:59 14:59 Other: Voiding Method Toilet # Voids 2 Weight 90.718 kg 90.718 kg Results 01/25/25 20:39 01/25/25 20:39 Cardiac Enzymes 01/25/25 01/25/2501/26/25 Range/Units 20:39 20:39 02:59 AST 50 (17-59) U/L Troponin I <0.012 <0.012 (0.000-0.034) ng/mL 01/26/25 Range/Units 06:12 AST (17-59) U/L Troponin I <0.012 (0.000-0.034) ng/mL Coagulation 01/25/25 Range/Units 20:39 PT 11.2 (10.0-12.5) sec APTT 23.7 (22.0-30.0) sec CBC 01/25/25 Range/Units 20:39 WBC 15.4 H (3.8-10.6) k/uL RBC 4.90 (4.30-5.90) m/uL Hgb 14.5 (13.0-17.5) gm/dL Hct 44.1 (39.0-53.0) % Plt Count 268 (150-450) k/uL Comprehensive Metabolic Panel 01/25/25 Range/Units 20:39 Sodium 136 L (137-145) mmol/L Potassium 4.2 (3.5-5.1) mmol/L Chloride 98 (98-107) mmol/L Carbon Dioxide 26 (22-30) mmol/L BUN 13 (9-20) mg/dL Creatinine 0.96 (0.66-1.25) mg/dL Glucose 109 H (74-99) mg/dL Calcium 9.3 (8.4-10.2) mg/dL AST 50 (17-59) U/L ALT 73 H (4-49) U/L Alkaline Phosphatase 74 (38-126) U/L Total Protein 7.2 (6.3-8.2) g/dL Albumin 4.6 (3.5-5.0) g/dL Current Medications Generic Name Dose Route Start Last Admin Trade Name Freq PRN Reason Stop Dose Admin Albuterol/Ipratropium 3 ml 01/26/25 08:00 Ipratropium-Albuterol 3 Ml Neb INHALATION RT-QID [facility] Budesonide 1 mg 01/26/25 08:00 Budesonide 1 Mg/2 Ml Nebu INHALATION RT-BID [facility] Methylprednisolone Sodium Succinate 40 mg 01/26/25 08:00 01/26/25 08:08 Methylprednisolone Sod Succi 40 Mg/Ml 1 Ml Vial IV 40 mg Q8HR GLORIA Administration Naloxone HCl 0.2 mg 01/26/25 00:57 Naloxone 0.4 Mg/Ml 1 Ml Vial IV Q2M PRN Opioid Reversal Intake and Output 01/25/25 01/26/25 01/26/25 22:59 06:59 14:59 Other: Voiding Method Toilet # Voids 2 Weight 90.718 kg 90.718 kg 01/25/25 20:39 01/25/25 20:39
[2025-01-26] MEDS ORDERED: FAMOTIDINE 20 MG TAB PO PRN (12:09)
[2025-01-26] MEDS ORDERED: NON FORMULARY DRUG (Fexofenadine Hcl [Allegra Allergy] 180 MG Tablet) PO SCH (12:15)
[2025-01-26] MEDS ORDERED: CYANOCOBALAMIN 500 MCG TAB PO SCH (12:15)
--- NOTE | 2025-01-26 12:48 | CA ---
Transthoracic Echo Report Name: Vito Cruz Age: 49 Gender: M : 1975 Exam Date: 01/26/2025 09:19 Exam Location: [facility] Ht (in): 69 Wt (lb): 200 Ordering Physician: Stephanie Santana Attending/Referring Phys: Director Of Employee Development Lorena Smith RDCS Procedure CPT: Indications: LV function, SOB, CP Cardiac Hx: Technical Quality: Good Contrast 1: Total Dose (mL): Contrast 2: Total Dose (mL): MEASUREMENTS (Male / Female) Normal Values 2D ECHO LV Diastolic Diameter PLAX 4.2 cm 4.2 - 5.9 / 3.9 - 5.3 cm LV Systolic Diameter PLAX 1.9 cm IVS Diastolic Thickness 1.5 cm 0.6 - 1.0 / 0.6 - 0.9 cm LVPW Diastolic Thickness 1.4 cm 0.6 - 1.0 / 0.6 - 0.9 cm LV Relative Wall Thickness 0.7 RV Internal Dim ED PLAX 3.0 cm Aortic Root Diameter 3.5 cm LA Systolic Diameter LX 3.8 cm 3.0 - 4.0 / 2.7 - 3.8 cm LV Diastolic Volume MOD BP 51.9 cm??? 67 - 155 / 56 - 104 cm??? LV Systolic Volume MOD BP 18.7 cm??? 22 - 58 / 19 - 49 cm??? LV Ejection Fraction MOD BP 64.1 % >= 55 % LV Cardiac Index MOD BP 1643.6 cm???/min???m??? LV Diastolic Volume MOD 4C 64.4 cm??? LV Systolic Volume MOD 4C 20.4 cm??? LV Ejection Fraction MOD 4C 68.4 % LV Cardiac Index MOD 4C 2174.9 cm???/min???m??? LV Diastolic Length 4C 7.2 cm LV Systolic Length 4C 6.0 cm LV Diastolic Volume MOD 2C 39.1 cm??? LV Systolic Volume MOD 2C 16.9 cm??? LV Ejection Fraction MOD 2C 56.9 % LV Cardiac Index MOD 2C 1100.1 cm???/min???m??? LV Diastolic Length 2C 6.7 cm LV Systolic Length 2C 5.8 cm M-MODE Aortic Root Diameter MM 3.5 cm LA Systolic Diameter MM 3.7 cm LA Ao Ratio MM 1.0 AV Cusp Separation MM 2.2 cm DOPPLER AV Peak Velocity 171.1 cm/s AV Peak Gradient 11.7 mmHg AV Mean Velocity 127.6 cm/s AV Mean Gradient 7.3 mmHg AV Velocity Time Integral 31.6 cm LVOT Peak Velocity 146.4 cm/s LVOT Peak Gradient 8.6 mmHg LVOT Velocity Time Integral 27.6 cm MV E' Velocity 10.4 cm/s FINDINGS Left Ventricle Left ventricular ejection fraction is estimated at 60-65 %. Moderate left ventricular hypertrophy. No obvious regional wall motion abnormalities. Left ventricular cavity size normal.Normal left ventricular systolic function with no obvious regional wall motion abnormalities. Right Ventricle Normal right ventricular size and function. Right ventricle at upper limits of normal. Right Atrium Normal right atrial size. Left Atrium Normal left atrial size. Mitral Valve Structurally normal mitral valve. Mild mitral regurgitation. No mitral stenosis. Aortic Valve Trileaflet aortic valve. No aortic valve stenosis or regurgitation. Tricuspid Valve Structurally normal tricuspid valve. Trace tricuspid regurgitation. No tricuspid stenosis. Pulmonic Valve Structurally normal pulmonic valve. Trace pulmonic regurgitation. No pulmonic stenosis. Pericardium No pericardial or pleural effusion. Aorta Normal size aortic root and proximal ascending aorta. CONCLUSIONS 1. Normal left ventricular size and systolic function with hypertrophy 2. Mild mitral regurgitation Previewed by: Dr. Deepthi Turner MD (Electronically Signed) Final Date: 26 January 2025 12:16
--- NOTE | 2025-01-26 13:05 | P.DS ---
Providers Date of admission: 01/26/25 01:00 Attending physician: Kleber Vasques Consults: 01/26/25 00:57 Consult Physician Urgent Consulting Provider: Lesley Mcdermott Consult Reason/Comments: exertional dyspnea, hx asthma Do you want consulting provider notified?: Yes Consult Physician Urgent Consulting Provider: [facility] Consult Reason/Comments: exertional dyspnea Do you want consulting provider notified?: Yes Primary care physician: Kleber Vasques Hospital Course: This is a discharge summary on a 49-year-old white male admitted for acute shortness of breath. Asthmatic bronchitis was noted which the patient was desaturating to below 90% and even 80%. The patient was stabilized with home O2 started on steroid treatment. Testing was negative for pulmonary embolus however given his sudden onset of desaturation, pulmonology and cardiology was consulted. My card infarction was ruled out and echocardiogram is nominal. The patient is discharged in stable condition to follow-up with me in about 3-5 days. Patient Condition at Discharge: Stable Plan - Discharge Summary New Discharge Prescriptions: New methylPREDNISolone Dose Pack [Medrol Dose Pack] 4 mg PO DIRECTED #21 tab Azithromycin [Zithromax Z Pack] 1 tab PO DIRECTED #6 tab Continue Montelukast [Singulair] 10 mg PO HS Escitalopram Oxalate [Lexapro] 10 mg PO DAILY Albuterol Inhaler [Ventolin Hfa Inhaler] 2 puff INHALATION RT-Q6H PRN PRN Reason: Shortness Of Breath Fluticasone Propionate 44 Mcg [Flovent 44 Mcg Inhaler] 2 puff INHALATION RT- BID Riboflavin (Vitamin B2) [Vitamin B-2] 400 mg PO DAILY Rosuvastatin Calcium [Crestor] 5 mg PO HS Cyanocobalamin (Vitamin B-12) [Vitamin B-12] 1,000 mcg PO DAILY Fexofenadine HCl [Ekta Allergy] 180 mg PO DAILY Multivit-Mins/Iron/Folic/Lycop [Centrum Men's Tablet] 1 tab PO DAILY Famotidine [Pepcid] 20 mg PO BID PRN PRN Reason: ACID REFLUX/ALLEGIES Glucosamine/Chondr Hughes A Sod [Osteo Bi-Flex Caplet] 2 tab PO HS Rizatriptan Benzoate [Rizatriptan Benzoate ODT] 10 mg PO TID PRN MDD 30mg PRN Reason: Migraine Headache Discontinued Loratadine [Claritin] 10 mg PO HS Discharge Medication List Escitalopram Oxalate [Lexapro] 10 mg PO DAILY 08/29/15 [History] Montelukast [Singulair] 10 mg PO HS 08/29/15 [History] Famotidine [Pepcid] 20 mg PO BID PRN 04/14/23 [History] Glucosamine/Chondr Hughes A Sod [Osteo Bi-Flex Caplet] 2 tab PO HS 04/14/23 [History] Albuterol Inhaler [Ventolin Hfa Inhaler] 2 puff INHALATION RT-Q6H PRN 01/26/25 [History] Azithromycin [Zithromax Z Pack] 1 tab PO DIRECTED #6 tab 01/26/25 [Rx] Cyanocobalamin (Vitamin B-12) [Vitamin B-12] 1,000 mcg PO DAILY 01/26/25 [History] Fexofenadine HCl [Ekta Allergy] 180 mg PO DAILY 01/26/25 [History] Fluticasone Propionate 44 Mcg [Flovent 44 Mcg Inhaler] 2 puff INHALATION RT-BID 01/26/25 [History] Multivit-Mins/Iron/Folic/Lycop [Centrum Men's Tablet] 1 tab PO DAILY 01/26/25 [History] Riboflavin (Vitamin B2) [Vitamin B-2] 400 mg PO DAILY 01/26/25 [History] Rizatriptan Benzoate [Rizatriptan Benzoate ODT] 10 mg PO TID PRN MDD 30mg 01/26/25 [History] Rosuvastatin Calcium [Crestor] 5 mg PO HS 01/26/25 [History] methylPREDNISolone Dose Pack [Medrol Dose Pack] 4 mg PO DIRECTED #21 tab 01/26/25 [Rx] Follow up Appointment(s)/Referral(s): Kleber Vasques MD [Primary Care Provider] - 3 Days Discharge Disposition: HOME SELF-CARE
[2025-01-26] MEDS ORDERED: MONTELUKAST 10 MG TAB PO SCH (21:00)
[2025-01-26] MEDS ORDERED: LORATADINE 10 MG TAB PO SCH (21:00)
[2025-01-26] MEDS ORDERED: ATORVASTATIN 20 MG TAB PO SCH (21:00)
== END 2025-01-26 14:07 | disposition home or self-care (01) ==
LOC: EC 20:08 → 6NMEDSUR 01-26 01:00
PROVIDERS: ADMIT Family Medicine; ATTEND Family Medicine
DX: J45.31 Mild persistent asthma with (acute) exacerbation (principal); J96.01 Acute respiratory failure with hypoxia; G47.33 Obstructive sleep apnea (adult) (pediatric); D72.829 Elevated white blood cell count, unspecified; R73.03 Prediabetes; E78.5 Hyperlipidemia, unspecified; K76.0 Fatty (change of) liver, not elsewhere classified; G43.909 Migraine, unspecified, not intractable, without status migrainosus; E66.9 Obesity, unspecified; Z68.29 Body mass index [BMI] 29.0-29.9, adult; Z79.51 Long term (current) use of inhaled steroids; Z79.899 Other long term (current) drug therapy; Z91.048 Other nonmedicinal substance allergy status; Z11.52 Encounter for screening for COVID-19; Z11.59 Encounter for screening for other viral diseases
CPT/HCPCS: 96376; 96374; 99285; 36415; 94640 ×2; 94760; 93306; 85379; 80053; 84484 ×2; 85025; 85610; 85730; 87636; 71046; 71275; G0378; Q9967; J2919 ×2